=== PATIENT | male | born 1980 | race Caucasian/White ===

== ENCOUNTER 2018-12-19 14:51 | Emergency (ER) | payer OTHER ==
[~2018-12-19] VITALS: Ht 177.8 cm; Wt 190.5 kg
[2018-12-19 14:59] VITALS: BP 145/74
--- NOTE | 2018-12-19 15:20 | NUR ---
PT. BIB SELF WITH C/O RUNNING NOSE, SORE THROAT, EYE DISCHARGE, NO FEVER, NO DIARRHEA, -N/V, COUGH X 3 DAYS. PT. IS AFEBRILE AT THIS TIME. RR EVEN AND UNLABORED. LS: CLEAR BILAT. SYMMETRICAL CHEST RISE AND FALL. 3/10 SORE THROAT PAIN X 3 DAYS. ER MD MADE AWARE. SAFETY PRECAUTIONS IN PLACE. WILL CONTINUE TO MONITOR
--- NOTE | 2018-12-19 16:30 | NUR ---
PT. RESTING COMFORTABLY IN BED, RR EVEN AND UNLABORED. HOB ELEVATED. WILL CONTINUE TO MONITOR. VSS.
[2018-12-19 17:13] VITALS: BP 142/74
--- NOTE | 2018-12-19 17:13 | NUR ---
Patient discharged with v/s stable. Written and verbal after care instructions given and explained. Patient alert, oriented and verbalized understanding of instructions. Ambulatory with steady gait. All questions addressed prior to discharge. ID band removed. Patient advised to follow up with PMD. Rx of PROMETHAZINE 6.25MG,POLYTRIM, AND CEPACOL SORE THROAT given. Patient educated on indication of medication including possible reaction and side effects. Opportunity to ask questions provided and answered.
== END 2018-12-19 17:13 | disposition home or self-care (01) ==
LOC: MED 14:51
DX: J06.9 Acute upper respiratory infection, unspecified (principal); H10.9 Unspecified conjunctivitis; J45.909 Unspecified asthma, uncomplicated
CPT/HCPCS: 99283